=== PATIENT | male | born 1975 | race Caucasian/White ===

== ENCOUNTER 2020-01-23 10:15 | Outpatient (CLI) | payer OTHER, SELFPAY ==
--- NOTE | 2020-01-23 10:25 | MR_ITS ---
WS: [id number] MRI CERVICAL SPINE NONCONTRAST TECHNIQUE: Sagittal T1, T2 and STIR imaging. Axial T2, gradient, and fiesta imaging. CLINICAL INFORMATION: PAIN COMPARISON: None. FINDINGS: Straightening of the normal cervical lordosis. Mild disc bulging C4-C5 and C5-C6. Cord signal is norm al. C2-C3: Normal. C3-C4: Normal. C4-C5: Mild disc bulging with mild central canal stenosis. Slight contact of the cervical cord. Moder ate bilateral bony foraminal narrowing. C5-C6: Mild disc bulging with osteophytic ridging. Mild to moderate central canal stenosis. Moderate to severe bilateral bony foraminal narrowing. Mild facet arthropathy. C6-C7: Mild disc bulging with slight effacement of ventral thecal sac. Mild bilateral foraminal narro wing. Spinal canal is patent. C7-T1: Normal. Visualized brain stem structures: Normal. Prevertebral soft tissues: Normal. MR/MR cervical spin wo con* [id number] IMPRESSION: 1. Straightening of the normal cervical lordosis. Cord signal is normal. 2. Mild central canal stenosis C4-C5 and [id number] spinal canal stenosi s C5-C6 with slight contact of the cervical cord. 3. Moderate bilateral bony foraminal narrowing C4-C5 and moderate to severe bi lateral C5-C6.
--- NOTE | 2020-01-23 10:32 | XR_ITS ---
WS: [id number] EYE TECHNIQUE: 2 views of the skull CLINICAL INFORMATION: PRE MRI ORBITS, R/O FOREIGN BODY COMPARISON: None. FINDINGS: No radiopaque foreign bodies. XR/XR eye foreign body [id number] IMPRESSION: No radiopaque foreign bodies.
== END 2020-01-23 10:16 | disposition home or self-care (01) ==
LOC: RADWPI 10:23
PROVIDERS: PCP Nurse Practitioner; Visit Provider Nurse Practitioner
DX: Z01.818 Encounter for other preprocedural examination (principal); M54.2 Cervicalgia; M48.02 Spinal stenosis, cervical region
CPT/HCPCS: 70030; 72141

== ENCOUNTER 2020-08-27 09:38 | Emergency (ER) | payer OTHER, SELFPAY ==
[2020-08-27 09:45] VITALS: BP 141/111; PULSE 99; RESP 16; TEMP 36.4; O2SAT 96; BMI 30.7
[2020-08-27 09:59] VITALS: BP 166/110; PULSE 90; RESP 20; O2SAT 99
--- NOTE | 2020-08-27 10:02 | W.ED.DENTAL ---
HPI - Dental/Oral General: Chief complaint: Dental/Oral Stated complaint: TOOTH INFECTION Time Seen by Provider: 08/27/20 09:40 History of Present Illness: HPI Narrative: 45-year-old L who presents with a left maxillary dental abscess. Its been swollen and inflamed he has had a going on off and on for some time now. [facility] unfortunately does not have dental insurance so it causes some issues. He has some mild swelling and increased facial pain with that he has not been taking anything MD Complaint: tooth pain Teeth map: 1. Onset (ago): week(s) Duration: constant Severity: moderate Exacerbating factors: chewing, cold and heat Associated symptoms: Denies ear or mastoid pain or fever(s) Treatment prior to arrival: none Review of Systems Const: Denies: fever(s), chills, body aches, change in appetite, fatigue or malaise ENMT: Denies: throat pain, ear or mastoid pain, nasal discharge or nasal congestion Card: Denies: chest pain, edema, dyspnea on exertion or orthopnea Resp: Denies: dyspnea, productive cough or non-productive cough GI: Denies: abdominal pain, nausea, vomiting, hematemesis, coffee ground emesis, diarrhea, constipation, bloating, hematochezia or melena : Denies: flank pain, dysuria, urinary frequency or urinary urgency Skin/Breast: Denies: rash or pruritus Physical Exam Const: COMMON NORMALS: no acute distress GENERAL APPEARANCE: cooperative and comfortable ORIENTATION/CONSCIOUSNESS: Yes awake, Yes oriented to person, Yes oriented to place and Yes oriented to time HENMT: COMMON NORMALS: normocephalic, atraumatic and hearing grossly normal bilaterally HEAD & SCALP: normocephalic and atraumatic Neck/C-Spine: COMMON NORMALS: no JVD Resp: COMMON NORMALS: normal respiratory effort, No retractions, No use of accessory muscles and clear to auscultation bilaterally AUSCULTATION: clear to auscultation bilaterally Cardio: COMMON NORMALS: no JVD, regular rate, regular rhythm and No murmurs present (Cardio) RATE: regular rate RHYTHM: regular rhythm GI: COMMON NORMALS: Soft to palpation and No hepatosplenomegaly present AUSCULTATION: Yes normoactive bowel sounds PALPATION: Yes Soft to palpation, No Tenderness to palpation present (GI), No Guarding due to palpation present (GI) and Yes No hepatosplenomegaly present Extremity: COMMON NORMALS: normal to inspection, capillary refill normal, no clubbing, cyanosis or edema, no calf tenderness and no pedal edema Neuro: SENSORIUM/ORIENTATION: Yes oriented to person, Yes oriented to place and Yes oriented to time Skin: COMMON NORMALS: no rashes or lesions noted GENERAL SKIN EXAM: no rashes or lesions noted Course Vital Signs: Vital signs: Vital Signs Temperature 97.6 F 08/27/20 09:45 Pulse Rate 90 08/27/20 09:59 Respiratory Rate 20 H 08/27/20 09:59 Blood Pressure 166/110 08/27/20 09:59 Pulse Oximetry 99 08/27/20 09:59 MDM - Dental/Oral MDM Narrative: Medical decision making narrative: Augmentin and hydrocodone for the dental carry encouraged him to follow-up with a dentist soon as he is able as this is not a definitive treatment. 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
[2020-08-27 10:11] VITALS: BP 129/99; PULSE 85; RESP 18; O2SAT 99
== END 2020-08-27 10:12 | disposition home or self-care (01) ==
PROVIDERS: Emergency Provider Family Medicine
DX: K02.9 Dental caries, unspecified (principal)
CPT/HCPCS: 99281

== ENCOUNTER 2021-08-22 06:34 | Outpatient (CLI) | payer OTHER, SELFPAY ==
--- NOTE | 2021-08-22 15:45 | US_ITS ---
WS: [id number] ULTRASOUND ABDOMEN LIMITED CLINICAL INFORMATION: R19.7 - Diarrhea, unspecified COMPARISON: None FINDINGS: Liver Size: Normal. Craniocaudal length: 16.2 cm. Echogenicity: Normal. Surface nodularity: None. Mass (size and location): None. Bile ducts Intrahepatic ducts: Normal. Common bile duct diameter: 0.4 cm. Gallbladder Normal. Gallstones: None. Gallbladder sludge: None. Gallbladder wall thickening: None. Pericholecystic fluid: None. Sonographic Broussard sign: Absent. Pancreas Normal where visualized. Tail not well seen. Right kidney: Normal. Hydronephrosis: None. Size: 11.5 cm x 5.2 cm x 5.2 cm. Abdominal aorta and IVC Visualized portions are normal. Ascites: None. US/US liver [id number] IMPRESSION: 1. Mild hepatomegaly. 2. Normal gallbladder. No cholelithiasis. 3. Normal common bile duct. 4. No hydronephrosis in RIGHT kidney. 5. No ascites.
== END 2021-08-22 06:35 | disposition home or self-care (01) ==
LOC: RAD 06:34
PROVIDERS: PCP Nurse Practitioner; Visit Provider Nurse Practitioner
DX: Z01.89 Encounter for other specified special examinations (principal); R19.7 Diarrhea, unspecified; R16.0 Hepatomegaly, not elsewhere classified
CPT/HCPCS: 76705

== ENCOUNTER → 2021-09-02 15:02 | Outpatient (BNVA) | payer OTHER, SELFPAY | PROVIDERS: PCP Nurse Practitioner; Visit Provider Surgery | DX: Z11.52 Encounter for screening for COVID-19 (principal) | CPT/HCPCS: 87635 ==

== ENCOUNTER 2021-09-04 07:46 | Day surgery (SDC) | payer OTHER, SELFPAY ==
--- NOTE | 2021-09-04 08:43 | P.ANESASSM_ITS ---
Pre-Anesthetic Assessment Height/Weight: Height 1.65 m Weight 88.451 kg Preop Diagnosis: Change in bowel habits Operation Date: 09/04/21 09:30 Proposed Procedures p Colonoscopy 33518 R19.7(Not Applicable) - Zaki Cook MD Familial anesthetic complications: none Was Beta Brigida taken within 24 hours: N/A Was Clonidine taken within 24 hours: N/A Last intake: 5 am coffee w/ creamer Social Tobacco and No alcohol Exam alert, oriented x 3, clear to auscultation bilaterally and regular rate & rhythm Airway Submandibular: within normal limits Cervical ROM: within normal limits Mallampati: Class II Dentition: chipped Pulmonary None reported CV/HEM None reported None reported Hepatic None reported GI Abdominal discomfort Metabolic None reported Musc/skel None reported Neuropsych PTSD Anesthetic Plan ASA status: 2 Anesthesia: Anesthesia Evaluation, General and MAC Other: I discussed with the patient risks, goals, and benefits of MAC and general anesthesia. We discussed spectrum of MAC anesthesia including conversion to general as well as possibility of recall of intraoperative stimuli including discomfort/pain. Patient agrees to proceed with MAC. Risk of > 500 ml blood loss (7ml/kg in children): No Other Pertinent Information Plan to hold procedure until 11 am as last intake of creamer was at 0500 09/04/2021 Medications/Allergies Home Medications Medication Instructions Recorded Confirmed Last Taken Type pregabalin 200 mg capsule (Lyrica) 400 mg PO DAILY 07/03/21 09/02/21 Unknown History trazodone 100 mg tablet 100 mg PO DAILY 07/03/21 09/02/21 Unknown History Allergies Allergy/AdvReac Type Severity Reaction Status Date / Time CT CONTRAST Allergy ALGY-Rash Uncoded 07/04/21 12:04 [facility] Anesthesia Social History Smoking and tobacco status: current every day smoker Data Anesthesia Cardiac Studies: No Data to Display
--- NOTE | 2021-09-04 09:57 | P.HP_ITS ---
Same Day Surgery H&P Indication for Procedure/HPI DATE OF PROCEDURE: September 04, 2021 CHIEF COMPLAINT/INDICATIONFOR SURGICAL PROCEDURE: Bloated PREOP DIAGNOSIS: Change in bowel habits PLANNED PROCEDURE: Operation Date: 09/04/21 09:30 Proposed Procedures p Colonoscopy 60037 R19.7(Not Applicable) - Zaki Cook MD 07/03/2021 This is a 46 years old gentleman with history of bloated all the time and chronic diarrhea patient reports that sometimes he has a change in caliber in stool.? Comes in stool on and off, and he is concerned that he may have prostate cancer.? He denies any hematuria but sometimes he does have an interrupted urine stream or sense of incomplete evacuation of the bladder. Patient denies unintentional weight loss otherwise. Patient reports history of diarrhea, sometimes bloody in nature, has been going on for quite some time maybe for 1 year or so.? Patient denies history of recent travels, antibiotics, change in medications, questionable source of water, no history of sick contacts, no history of thyroid disorders.? Still have his gallbladder Patient is referred to me for colonoscopy 09/04/2021 Patient comes today for colonoscopy stool sampling ROS All systems have been reviewed negative except as per the above or per problem list Medications/Allergies* Home Medications Medication Instructions Recorded Confirmed Type pregabalin 200 mg capsule (Lyrica) 400 mg PO DAILY 07/03/21 09/02/21 History trazodone 100 mg tablet 100 mg PO DAILY 07/03/21 09/02/21 History Allergies/Adverse Reactions Allergy/AdvReac Type Severity Reaction Status Date / Time CT CONTRAST Allergy ALGY-Rash Uncoded 09/04/21 11:09 Pertinent History/Comorbid Conditions* Social History Smoking and tobacco status: current every day smoker Pertinent Exam Findings alert, oriented x 3, regular rate & rhythm and procedure specific exam findings (Abdominal examination nontender nondistended soft) Recommendations Surgery/Procedure today (Colonoscopy with possible biopsy) 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
[2021-09-04 10:41] VITALS: BP 126/94; PULSE 96; RESP 20; TEMP 36.6; O2SAT 97
[2021-09-04] MEDS: sodium chloride 0.9% 1,000 ML 30 ML IV (10:48)
[2021-09-04 11:31] VITALS: BP 96/68; PULSE 73; RESP 16; TEMP 36.1; O2SAT 96
[2021-09-04 11:41] VITALS: BP 100/72; PULSE 66; RESP 16; O2SAT 97
--- NOTE | 2021-09-04 12:40 | ANE.PACU2 ---
Inpatient post-anesthesia follow up: Airway intact: Yes Vital signs: Temperature 97.0 F Pulse Rate 66 Respiratory Rate 16 Blood Pressure 100/72 Pulse Oximetry 97 Oxygen Delivery Me thod Nasal Cannula Oxygen Flow Rate 4 Fraction of Inspir ed Oxygen Hydration adequate: Yes Nausea and vomiting: No Pain level: 1 Mental status: Baseline
== END 2021-09-04 11:56 | disposition home or self-care (01) ==
PROVIDERS: PCP Nurse Practitioner; Visit Provider Surgery
PROC: 0DJD8ZZ Inspection of Lower Intestinal Tract, Via Natural or Artificial Opening Endoscopic (ICD-10-PCS; CPT 45330; 2021-09-04 09:30)
DX: R19.4 Change in bowel habit (principal); D12.5 Benign neoplasm of sigmoid colon; F17.210 Nicotine dependence, cigarettes, uncomplicated
CPT/HCPCS: 45338; 82274; 83630; 87493; 87506; 88305; J2704; J7030

== ENCOUNTER 2021-11-13 05:41 | Day surgery (SDC) | payer OTHER, SELFPAY ==
[2021-11-11 10:16] VITALS: BMI 31.6
[2021-11-13 06:01] VITALS: BP 119/80; PULSE 92; RESP 18; TEMP 36.2; O2SAT 94
[2021-11-13] MEDS: sodium chloride 0.9% 1,000 ML 30 ML IV (06:13)
--- NOTE | 2021-11-13 06:24 | P.HP_ITS ---
Same Day Surgery H&P Indication for Procedure/HPI DATE OF PROCEDURE: November 13, 2021 CHIEF COMPLAINT/INDICATIONFOR SURGICAL PROCEDURE: Bloating PREOP DIAGNOSIS: Colon polyps PLANNED PROCEDURE: Operation Date: 11/13/21 07:00 Proposed Procedures p Colonoscopy 11208/K63.5 colon polyp(Not Applicable) - Zaki Cook MD 09/15/2021 Patient comes today for follow-up status post attempted colonoscopy and was limited only to flex sigmoidoscopy due to the poor colon prep.? Yet a large polyp was found and was excised and pathology did show: ?Colon, sigmoid polyp , polypectomy: ?Tubulovillous adenoma. ?No high-grade dysplasia identified. Patient also undergone an ultrasound of the liver and gallbladder based on my request as patient has been showing history of diarrhea and bloating that did show 1.? Mild hepatomegaly. 2.? Normal gallbladder. No cholelithiasis. 3.? Normal common bile duct. 4.? No hydronephrosis in RIGHT kidney. 5.? No ascites. ? 11/14/2019 ROS All systems have been reviewed negative except as for the above or per problem list. Medications/Allergies* Home Medications Medication Instructions Recorded Confirmed Type pregabalin 200 mg capsule (Lyrica) 400 mg PO DAILY 07/03/21 11/11/21 History trazodone 100 mg tablet 100 mg PO DAILY 07/03/21 11/11/21 History Allergies/Adverse Reactions Allergy/AdvReac Type Severity Reaction Status Date / Time CT CONTRAST Allergy ALGY-Rash Uncoded 11/13/21 06:25 Current Medications: Generic Name Dose Route Start Last Admin Trade Name Freq PRN Reason Stop Dose Admin Sodium Chloride 1,000 mls @ 30 mls/hr 11/13/21 06:00 11/13/21 06:13 Sodium Chloride 0.9% IV 30 mls/hr .Q24H ROMARIO Administration Pertinent History/Comorbid Conditions* Social History Smoking and tobacco status: current every day smoker Pertinent Exam Findings alert, oriented x 3, regular rate & rhythm and procedure specific exam findings (Abdominal examination nontender nondistended soft) Recommendations Surgery/Procedure today (Surveillance colonoscopy ) 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
--- NOTE | 2021-11-13 06:46 | ANES.PREANE2 ---
Pre-Anesthetic Assessment Height/Weight: Height 1.65 m Weight 86.183 kg Temp Pulse Resp BP Pulse Ox 97.1 F L 92 18 119/80 94 11/13/21 06:01 11/13/21 06:01 11/13/21 06:01 11/13/21 06:01 11/13/21 06:01 Preop Diagnosis: Colon polyps Operation Date: 11/13/21 07:00 Proposed Procedures p Colonoscopy 40442/K63.5 colon polyp(Not Applicable) - Zaki Cook MD Familial anesthetic complications: none Last intake: Intake Last Liquid Date 11/12/21 Last Liquid Time 21:00 Last Solid Date 11/06/21 Last Solid Time 23:59 Social Tobacco and No alcohol Airway Submandibular: within normal limits Cervical ROM: within normal limits Mallampati: Class II Dentition: chipped Pulmonary None reported CV/HEM None reported None reported Hepatic fatty liver per patient. GI None reported Metabolic None reported Musc/skel None reported Neuropsych None reported Anesthetic Plan ASA status: 2 Anesthesia: MAC Medications/Allergies Home Medications Medication Instructions Recorded Confirmed Last Taken Type pregabalin 200 mg capsule (Lyrica) 400 mg PO DAILY 07/03/21 11/11/21 11/12/21 History trazodone 100 mg tablet 100 mg PO DAILY 07/03/21 11/11/21 11/12/21 History Allergies Allergy/AdvReac Type Severity Reaction Status Date / Time CT CONTRAST Allergy ALGY-Rash Uncoded 11/13/21 06:25 Current Medications Generic Name Dose Route Start Last Admin Trade Name Freq PRN Reason Stop Dose Admin Sodium Chloride 1,000 mls @ 30 mls/hr 11/13/21 06:00 11/13/21 06:13 Sodium Chloride 0.9% IV 30 mls/hr .Q24H ROMARIO Administration PFSH Anesthesia Social History Smoking and tobacco status: current every day smoker Data Anesthesia Cardiac Studies: No Data to Display
[2021-11-13 07:24] VITALS: BP 95/60; PULSE 62; RESP 16; TEMP 36.4; O2SAT 95
[2021-11-13 07:29] VITALS: BP 103/65; PULSE 66; RESP 18; O2SAT 95
[2021-11-13 07:40] VITALS: BP 109/84; PULSE 77; RESP 18; O2SAT 95
--- NOTE | 2021-11-13 14:24 | ANE.PACU2 ---
Inpatient post-anesthesia follow up: Airway intact: Yes Vital signs: Temperature 97.6 F Pulse Rate 77 Respiratory Rate 18 Blood Pressure 109/84 Pulse Oximetry 95 Oxygen Delivery Me thod Room Air Oxygen Flow Rate 3 Fraction of Inspir ed Oxygen Hydration adequate: Yes Nausea and vomiting: No Pain level: 1 Mental status: Baseline
== END 2021-11-13 07:55 | disposition home or self-care (01) ==
PROVIDERS: PCP Nurse Practitioner; Visit Provider Surgery
PROC: 0DJD8ZZ Inspection of Lower Intestinal Tract, Via Natural or Artificial Opening Endoscopic (ICD-10-PCS; CPT 45378; principal; 2021-11-13 07:00)
DX: Z12.11 Encounter for screening for malignant neoplasm of colon (principal); K52.9 Noninfective gastroenteritis and colitis, unspecified; D12.4 Benign neoplasm of descending colon; F17.200 Nicotine dependence, unspecified, uncomplicated
CPT/HCPCS: 45385; 82274; 83630; 87493; 87506; 88305; J2704; J7030

== ENCOUNTER → 2021-11-20 13:48 | Outpatient (BNVA) | payer OTHER, SELFPAY | PROVIDERS: PCP Nurse Practitioner; Visit Provider Surgery | DX: Z09 Encounter for follow-up examination after completed treatment for conditions other than malignant neoplasm (principal); R14.0 Abdominal distension (gaseous); A04.5 Campylobacter enteritis | CPT/HCPCS: 99213 ==

== ENCOUNTER 2021-11-27 11:07 | Outpatient (CLI) | payer OTHER, SELFPAY | END 2021-11-27 11:08 | disposition home or self-care (01) | LOC: LAB 11:10 | PROVIDERS: PCP Nurse Practitioner; Visit Provider Nurse Practitioner | DX: R14.0 Abdominal distension (gaseous) (principal) | CPT/HCPCS: 83630; 87177; 87209; 87493; 87506 ==

== ENCOUNTER 2021-12-11 09:51 | Outpatient (CLI) | payer OTHER, SELFPAY ==
--- NOTE | 2021-12-11 10:00 | CT_ITS ---
WS: [id number] CT CHEST WITHOUT INTRAVENOUS CONTRAST HISTORY: ABNORMAL CXR TECHNIQUE: Contiguous 5 mm axial imaging performed on the thorax. Coronal and sagittal reformats are submitted. All CT scans at [facility] use at least one of these dose optimization techniques: automated exposure control; mA and/or kV adjustment per patient size (includes targeted exams where dose is matched to clinical indication); or iterative reconstruction. CONTRAST: None DLP: 341.56 mGy-cm. COMPARISON: None available. Prior chest radiograph that showed an abnormality is not available. Lungs and central airway: 5 mm noncalcified nodule abuts the minor fissure in the anterior RIGHT midd le lobe. Subsegmental linear atelectasis at the lung bases. No mass or nodule. Pleura: Normal. No pleural effusion. Heart and pericardium: Normal size heart with no pericardial effusion. Mediastinum and ranjan: No mediastinum or hilar adenopathy. Vessels: Normal size aortic and pulmonary artery. No coronary artery calcifications. Chest wall and lower neck: No soft tissue masses. Upper abdomen: Negative. Osseous structures: No destructive process. CT/CT chest wo con [id number] IMPRESSION: 1. Noncalcified 5 mm nodule abuts the minor fissure extending into the RIGHT m iddle lobe. Recommend follow-up chest CT in 6-12 months. 2. No pneumonia or additional nodules. 3. No adenopathy.
== END 2021-12-11 09:52 | disposition home or self-care (01) ==
LOC: RAD 09:52
PROVIDERS: PCP Nurse Practitioner; Visit Provider Nurse Practitioner
DX: Z01.89 Encounter for other specified special examinations (principal)
CPT/HCPCS: 71250

== ENCOUNTER 2022-01-23 07:32 | Outpatient (CLI) | payer OTHER, SELFPAY ==
--- NOTE | 2022-01-23 08:00 | NM_ITS ---
WS: [id number] NUCLEAR MEDICINE HIDA SCAN WITH GALLBLADDER EJECTION FRACTION HISTORY: R14.0 - Abdominal distension (gaseous) COMPARISON: None available. TECHNIQUE: The patient was intravenously injected with 7.4 mCi of TC99m Mebrofenin. Immediate imaging over the right upper quadrant was followed by 5 minute image and additional images for a total of 60 minutes. Normal uptake of radiotracer throughout the liver. Activity identified in the gallbladder at 10 minutes and well distended by 60 minutes. Activity in the proximal small bowel was seen by 10 minutes. Good washout of the radiotracer from the liver by 60 minutes. The patient then drank 8 ounces of Ensure Plus. Ejection fraction at 60 minutes was 92%. Normal GB ej ection fraction is 35-75%. Post fatty meal symptoms: None. NM/NM hepatobiliary w phar* [id number] IMPRESSION: 1. Normal HIDA scan. 2. Normal gallbladder ejection fraction.
== END 2022-01-23 07:33 | disposition home or self-care (01) ==
LOC: RAD 07:34
PROVIDERS: PCP Nurse Practitioner; Visit Provider Surgery
DX: R14.0 Abdominal distension (gaseous) (principal)
CPT/HCPCS: 78227; A9537

== ENCOUNTER → 2022-01-29 16:17 | Outpatient (BNVA) | payer OTHER, SELFPAY | PROVIDERS: PCP Nurse Practitioner; Visit Provider Surgery | DX: Z09 Encounter for follow-up examination after completed treatment for conditions other than malignant neoplasm (principal); R14.0 Abdominal distension (gaseous); K76.0 Fatty (change of) liver, not elsewhere classified; R19.8 Other specified symptoms and signs involving the digestive system and abdomen; R19.7 Diarrhea, unspecified | CPT/HCPCS: 99212 ==